=== PATIENT | female | born 1945 ===

== ENCOUNTER 2018-12-19 18:00 | Outpatient (CLI) | payer MEDICARE, OTHER | END 2018-12-19 23:59 | disposition home or self-care (01) | LOC: LAB.R 18:00 → EDSEX 12-20 18:00 → LAB.R 12-20 23:59 | PROVIDERS: ATTEND Podiatrist | DX: L03.031 Cellulitis of right toe (principal) | CPT/HCPCS: 87070; 87077; 87181; 87205 ==